=== PATIENT | female | born 1990 | race African-American/Black ===

== ENCOUNTER 2019-07-30 09:10 | Day surgery (SDC) | payer OTHER ==
[2019-07-30 10:00] VITALS: BMI 28.3
[2019-07-30] MEDS ORDERED: hydrALAZINE 20 MG/ML VIAL SLOW IVP PRN (10:12)
--- NOTE | 2019-07-30 10:20 | PDOC.LDHP ---
Labor and Delivery H&P HPI: Time of eval at bedside 1020 Here for CTX EGA 38 weeks 5 days 29 yo g1 with CTX since 0200, no LOF, mucous plu passed. Good FM, no VB. 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 Review of Systems: complete ROS checked and negative except for incidential HX of low "Blood count". Current gestational age (weeks): 38 (5 days) Due date: 08/08/19 Dating criteria: last menstrual period Grav: 1 Current complications: none Abnormal US findings: No Current medications: none (stopped dex recently...3 days ago) Previous surgical history: other (wisdom teeth) Allergies/Adverse Reactions: Allergies Allergy/AdvReac Type Severity Reaction Status Date / Time sulfamethoxazole Allergy Verified 07/30/19 09:53 [From Bactrim] trimethoprim [From Bactrim] Allergy Verified 07/30/19 09:53 - Physical Exam Vital signs reviewed and normal: yes (128/79) General: NAD Heart: RRR Lungs: CTAB Abdomen: gravid Extremeties: no edema FHT: category 1 - Vaginal Exam cm dilated: 2 Effacement: 75% Station: -1 - Assessment Latent phase of labor early term...GBS neg - Plan Plan: observation in L&D (recheck in 2 hours; check CBC if admitted for PLT check)
== END 2019-07-30 12:15 | disposition home or self-care (01) ==
LOC: L&D/OP 09:10
PROVIDERS: ATTEND Student in an Organized Health Care Education/Training Program
DX: Z34.03 Encounter for supervision of normal first pregnancy, third trimester (principal); Z3A.38 38 weeks gestation of pregnancy; Z88.2 Allergy status to sulfonamides

== ENCOUNTER 2019-07-31 10:16 | Inpatient (IN) | payer OTHER ==
[2019-07-31] MEDS ORDERED: HYDROcodone/Acetaminophen 5/325 mg Tablet PO PRN (10:28)
[2019-07-31] MEDS ORDERED: Butorphanol Tartrate 1 MG/ML VIAL SLOW IVP PRN (10:28)
[2019-07-31] MEDS ORDERED: Ondansetron PF 4 MG/2 ML Vial IVP PRN ×2 (10:28→12:55)
[2019-07-31] MEDS ORDERED: Acetaminophen 500 MG TAB PO PRN (10:28)
[2019-07-31] MEDS ORDERED: Promethazine HCl 25 MG/ML VIAL IM PRN (10:28)
[2019-07-31] MEDS ORDERED: Lidocaine 1% (PF) 30 ML VIAL SC PRN (10:28)
[2019-07-31] MEDS ORDERED: Carboprost 250 MCG/ML AMP IM PRN (10:28)
[2019-07-31] MEDS ORDERED: Ibuprofen 800 MG TAB PO PRN (10:28)
[2019-07-31] MEDS ORDERED: Misoprostol 200 MCG TAB PR PRN (10:28)
[2019-07-31] MEDS ORDERED: NS / Oxytocin 40 units/1000ml 1,000 ML IV PRN (10:28)
[2019-07-31] MEDS ORDERED: Methylergonovine 0.2 MG/ML VIAL IM PRN (10:28)
[2019-07-31] MEDS ORDERED: Diphenoxylate HCl/Atropine Tablet PO PRN (10:28)
[2019-07-31] MEDS ORDERED: NS w/ Oxytocin 10 units 500 ML IV SCH (10:30)
[2019-07-31 11:43] LABS: Hemoglobin 11.3 g/dL (12.0-16.0); Mean Corpuscular HGB CONC 35.7 g/dL (32.0-36.0); Mean Corpuscular Hemoglobin 31.1 pg (27.0-31.0); Mean Corpuscular Volume 87.1 fL (78.0-98.0); Mean Platelet Volume 15.1 fL (7.4-10.4); Platelet Count 64 thou/uL (130-400); RBC Distribution Width 16.2 % (11.5-14.5); Red Blood Cell (RBC) Count 3.63 mill/uL (4.20-5.40); White Blood Cell (WBC) Count 9.5 thou/uL (4.8-10.8)
[2019-07-31 12:01] LABS: ALT (SGPT) 71 U/L (8-55); AST (SGOT) 33 U/L (5-34); Albumin 3.4 g/dL (3.5-5.0); Alkaline Phosphatase 201 U/L (40-150); Anion Gap 11 mmol/L (10-20); BUN (Urea Nitrogen) 7 mg/dL (7.0-18.7); Bilirubin, Total 0.9 mg/dL (0.2-1.2); Calc. Creatinine Clearance 0 mL/min (70-130); Calcium 8.4 mg/dL (7.8-10.44); Carbon Dioxide 22 mmol/L (22-29); Chloride 106 mmol/L (98-107); Estimated GFR-MDRD Greater than 90; Globulin 2.3 g/dL (2.4-3.5); Glucose 97 mg/dL (70-105); Potassium 3.6 mmol/L (3.5-5.1); Protein, Total 5.7 g/dL (6.0-8.3); Sodium 135 mmol/L (136-145)
[2019-07-31 12:08] LABS: Band 2 % (5-11); Lymphocytes 9 % (21-51); MDiff Complete? YES; Monocytes 3 % (0-10); Neutrophil 86 % (42-75); Platelet Morphology Comment Appears Decreased; Polychromasia MODERATE = 3-4 cells (100X) (0-2/hpf)
[2019-07-31 12:17] LABS: HBSAg Index 0.15 S/CO (0-0.99); Hep B Surf Ag Non-Reactive S/CO (NonReactive)
[2019-07-31 12:20] LABS: Syphilis Antibody Nonreactive (Nonreactive); Syphilis Antibody Index 0.03 S/CO (<1.00 Non-Reactive)
[2019-07-31 12:42] VITALS: BMI 28.3
[2019-07-31] MEDS ORDERED: Naloxone HCl 0.4 mg/ml Vial IV PRN (12:55)
[2019-07-31] MEDS ORDERED: fentaNYL Citrate/PF 2,000 MCG in Sodium Chloride 0.9% 60 ML IV PRN (12:55)
[2019-07-31] MEDS ORDERED: Communication Order-Pharmacy FS PRN (13:00)
--- NOTE | 2019-07-31 13:52 | PDOC.LDHP ---
Labor and Delivery H&P Chief complaint: contractions HPI: 29yo at 38w5d by LMP here with painful contractions since yesterday q 5- 8min. 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 Current medications: pre-jonas vitamins, iron Previous surgical history: none Allergies/Adverse Reactions: Allergies Allergy/AdvReac Type Severity Reaction Status Date / Time sulfamethoxazole Allergy Verified 07/30/19 09:53 [From Bactrim] trimethoprim [From Bactrim] Allergy Verified 07/30/19 09:53 Social history: none - Physical Exam Vital signs reviewed and normal: yes General: NAD, breathing through contractions Heart: RRR Lungs: CTAB Abdomen: gravid Extremeties: no edema FHT: category 1 [place] contractions every: 5-10min - Vaginal Exam cm dilated: 5 Effacement: 100% Station: 0 (arom mod mec) - OB Labs RH: positive Antibody Screen: negative HIV: negative RPR: negative HEPSAg: negative 1 hour GCT: negative GBS: negative Urine drug screen: negative Rubella: immune - Assessment L&D Assessment: term patient in labor - Plan Plan: admit to L&D, labor augmentation if indicated, informed consent obtained, anesthesia consult for pain management -: BP mildly elevated, ALT 71, Creat nl, Plt 64, will get PCR and r/o PIH. No sx currently. Type and cross prbc and platelets.
[2019-07-31 16:30] LABS: Creatinine, Urine 59.24 mg/dL (47-110)
[2019-07-31] MEDS ORDERED: Magnesium Sulfate 20 gm/500 ml 20 GM/500 ML BAG ONE (17:52)
[2019-07-31] MEDS: Lactated Ringer's 1,000 ML IV SCH (18:11)
[2019-07-31] MEDS ORDERED: Calcium Gluc 4.6 MEQ/10 ML (100 MG/ML) SLOW IVP PRN (18:31)
[2019-07-31] MEDS ORDERED: Magnesium Sulfate 20 GM/WATER 500 ML BAG IVPB SCH (18:45)
[2019-07-31] MEDS ORDERED: Magnesium Sulfate 20 gm/500 ml 20 GM/500 ML BAG IVPB SCH (18:45)
[2019-07-31] MEDS ORDERED: Misoprostol 200 MCG TAB ONE (19:32)
[2019-07-31] MEDS ORDERED: Methylergonovine 0.2 MG/ML VIAL ONE (19:33)
[2019-07-31] MEDS ORDERED: NS / Oxytocin 40 units/1000ml 1,000 ML ONE (19:33)
[2019-07-31] MEDS ORDERED: Carboprost 250 MCG/ML AMP ONE (19:33)
[2019-07-31] MEDS: hydrALAZINE 20 MG/ML VIAL SLOW IVP PRN (23:03)
[2019-08-01 08:01] LABS: ALT (SGPT) 53 U/L (8-55); AST (SGOT) 31 U/L (5-34); Albumin 3.5 g/dL (3.5-5.0); Alkaline Phosphatase 212 U/L (40-150); Anion Gap 16 mmol/L (10-20); BUN (Urea Nitrogen) 6 mg/dL (7.0-18.7); Bilirubin, Total 1.6 mg/dL (0.2-1.2); Calc. Creatinine Clearance 115 mL/min (70-130); Calcium 7.7 mg/dL (7.8-10.44); Carbon Dioxide 18 mmol/L (22-29); Chloride 102 mmol/L (98-107); Estimated GFR-MDRD Greater than 90; Globulin 2.5 g/dL (2.4-3.5); Glucose 116 mg/dL (70-105); Potassium 3.6 mmol/L (3.5-5.1); Sodium 132 mmol/L (136-145)
[2019-08-01 08:14] LABS: Anisocytosis SLIGHT = 6-15 cells (100X) (0-5/hpf); Band 10 % (5-11); Hemoglobin 11.5 g/dL (12.0-16.0); Large Platelets SLIGHT; Lymphocytes 2 % (21-51); MDiff Complete? YES; Mean Corpuscular HGB CONC 35.1 g/dL (32.0-36.0); Mean Corpuscular Hemoglobin 30.8 pg (27.0-31.0); Mean Corpuscular Volume 87.9 fL (78.0-98.0); Mean Platelet Volume 12.4 fL (7.4-10.4); Monocytes 2 % (0-10); Neutrophil 86 % (42-75); Platelet Count 45 thou/uL (130-400); Platelet Morphology Comment Appears Decreased; RBC Distribution Width 16.2 % (11.5-14.5); Red Blood Cell (RBC) Count 3.74 mill/uL (4.20-5.40); White Blood Cell (WBC) Count 18.5 thou/uL (4.8-10.8)
--- NOTE | 2019-08-01 09:08 | PDOC.OPDEL ---
OB Operative/Delivery Note Delivery Dr/Surgeon: Nay Assist: n/a Pre-Delivery Diagnosis: medically indicated induction (severe PEC) Procedure/Post Delivery Dx: spontaneous vaginal delivery Weeks gestation: 38 Anesthesia: local - Findings A Sex: male - 1 min: 8 - 5 min: 9 - Additional Findings/Plan Placenta delivered: spontaneous Repaired Obstetrical Laceration: 1st degree Estimated blood loss: 500cc Post delivery plan: recovery in LICU
[2019-08-01] MEDS ORDERED: hydrALAZINE 20 MG/ML VIAL ONE (09:49)
[2019-08-01] MEDS: hydrALAZINE 20 MG/ML VIAL SLOW IVP PRN (10:00)
[2019-08-01] MEDS ORDERED: NIFEdipine 10 MG CAP PO SCH (11:00)
[2019-08-01] MEDS ORDERED: Labetalol HCl 100 MG/20 ML VIAL SLOW IVP SCH (11:00)
[2019-08-01] MEDS ORDERED: MAGNESIUM SULFATE IVPB SCH ×2 (13:15→13:30)
[2019-08-01] MEDS ORDERED: ADMIXTURE FEE IVPB SCH ×2 (13:15→13:30)
[2019-08-01] MEDS ORDERED: STERILE WATER IVPB SCH ×2 (13:15→13:30)
[2019-08-01] MEDS ORDERED: Zolpidem Tartrate 5 MG TAB PO PRN (13:42)
[2019-08-01] MEDS ORDERED: Preparation H Ointment 28 GM TUBE PR PRN (13:42)
[2019-08-01] MEDS ORDERED: Benzocaine-Menthol 82.5 ML CAN TOP PRN (13:42)
[2019-08-01] MEDS ORDERED: Ondansetron PF 4 MG/2 ML Vial IVP PRN (13:42)
[2019-08-01] MEDS ORDERED: Bisacodyl 10 MG SUPP PR PRN (13:42)
[2019-08-01] MEDS ORDERED: Milk Of Magnesia 30 ML UDCUP PO PRN (13:42)
[2019-08-01] MEDS ORDERED: hydrALAZINE 20 MG/ML VIAL SLOW IVP PRN (13:42)
[2019-08-01] MEDS ORDERED: diphenhydrAMINE 25 MG CAP PO PRN (13:42)
[2019-08-01] MEDS ORDERED: HYDROcodone/Acetaminophen 5/325 mg Tablet PO PRN ×2 (13:42)
[2019-08-01] MEDS ORDERED: Lanolin Ointment 7 GM TUBE TOP PRN (13:42)
[2019-08-01] MEDS ORDERED: NS / Oxytocin 40 units/1000ml 1,000 ML IV SCH (13:45)
[2019-08-02] MEDS: Lactated Ringer's 1,000 ML IV SCH ×4 (02:54→12:09)
[2019-08-02 05:05] LABS: #Eosinphils 0.1 thou/uL (0.0-0.7); #Lymphocytes 1.6 thou/uL (1.20-3.40); #Monocytes 0.9 thou/uL (0.11-0.59); #Neutrophils 10.8 thou/uL (1.40-6.50); %Basophils 0.3 % (0.0-1.0); %Eosinophils 0.4 % (0.0-10.0); %Lymphocytes 11.9 % (21.0-51.0); %Monocytes 6.9 % (0.0-10.0); %Neutrophils 80.5 % (42.0-75.0); Hemoglobin 8.9 g/dL (12.0-16.0); Mean Corpuscular HGB CONC 34.7 g/dL (32.0-36.0); Mean Corpuscular Hemoglobin 31.1 pg (27.0-31.0); Mean Corpuscular Volume 89.7 fL (78.0-98.0); Mean Platelet Volume 13.7 fL (7.4-10.4); Platelet Count 79 thou/uL (130-400); RBC Distribution Width 16.2 % (11.5-14.5); Red Blood Cell (RBC) Count 2.85 mill/uL (4.20-5.40); White Blood Cell (WBC) Count 13.4 thou/uL (4.8-10.8)
[2019-08-02 05:26] LABS: ALT (SGPT) 26 U/L (8-55); AST (SGOT) 16 U/L (5-34); Albumin 2.5 g/dL (3.5-5.0); Alkaline Phosphatase 126 U/L (40-150); Bilirubin, Direct 0.3 mg/dL (0.1-0.3); Bilirubin, Total 0.6 mg/dL (0.2-1.2); Protein, Total 4.6 g/dL (6.0-8.3)
[2019-08-02] MEDS: Ibuprofen 800 MG TAB PO SCH ×5 (06:56→19:35)
[2019-08-02] MEDS: Docusate Calcium (SURFAK) 240 MG CAP PO SCH ×3 (06:57→19:35)
--- NOTE | 2019-08-02 07:25 | PDOC.PP ---
Post Progress Note Post Day #: 1 Subjective: Doing much better this morning. No more perioral numbness. PO intake tolerated: yes Weight Weight 155 lb - Physical Examination General: NAD Respiratory: non-labored breathing Abdominal: lochia (normal), no distention, appropriately TTP Fundus firm & at: below umbilicus Neurological: no gross focal deficits Psychiatric: A&Ox3, normal affect Result Diagrams: 08/02/19 04:39 08/01/19 07:10 Additional Labs: Post Labs Blood Type B POSITIVE 07/31/19 11:07 Hep Bs Antigen Non-Reactive S/CO (NonReactive) 07/31/19 11:07 (1) (spontaneous vaginal delivery) Code(s): O80 - ENCOUNTER FOR FULL-TERM UNCOMPLICATED DELIVERY Status: Acute (2) Thrombocytopenia Code(s): D69.6 - THROMBOCYTOPENIA, UNSPECIFIED Status: Chronic - Assessment/Plan D/c Mag today. BPs wnl since noon yesterday. Platelet level improved to 79, 000. Continue to monitor.
[2019-08-02] MEDS: Ferrous Sulfate 325 MG TAB PO SCH ×3 (08:02→19:03)
[2019-08-02] MEDS: Prenatal Vitamin 1 TAB PO SCH (09:02)
[2019-08-02] MEDS ORDERED: Adacel (T-DAP) 0.5 ML SYRINGE IM ONE (13:42)
[2019-08-03] MEDS ORDERED: Sodium Chloride 0.9% 10 ML ONE (00:21)
--- NOTE | 2019-08-03 05:45 | PDOC.PP ---
Post Progress Note Post Day #: PPD2 Subjective: , no complaints. PO intake tolerated: yes Flatus: yes Ambulation: yes Vital Signs (12 hours) Temp Pulse Resp BP Pulse Ox 08/03/19 00:20 98.3 F 88 20 114/63 08/02/19 22:40 98.3 F 94 20 123/72 98 Weight Weight 70.307 kg - Physical Examination General: NAD Respiratory: non-labored breathing Abdominal: no distention Neurological: no gross focal deficits Psychiatric: normal affect Result Diagrams: 08/02/19 04:39 08/01/19 07:10 Additional Labs: Post Labs Blood Type B POSITIVE 07/31/19 11:07 Hep Bs Antigen Non-Reactive S/CO (NonReactive) 07/31/19 11:07 - Assessment/Plan Doing well since Mg stopped yesterday AM. Suspect resolving atypical HELLP. CBC this AM pending. Possible Dc later today.
[2019-08-03 05:49] LABS: #Basophils 0.1 thou/uL (0.0-0.2); #Eosinphils 0.1 thou/uL (0.0-0.7); #Lymphocytes 1.9 thou/uL (1.20-3.40); #Monocytes 0.8 thou/uL (0.11-0.59); #Neutrophils 7.4 thou/uL (1.40-6.50); %Basophils 0.5 % (0.0-1.0); %Eosinophils 0.6 % (0.0-10.0); %Lymphocytes 18.8 % (21.0-51.0); %Monocytes 7.7 % (0.0-10.0); %Neutrophils 72.4 % (42.0-75.0); Hemoglobin 8.3 g/dL (12.0-16.0); Mean Corpuscular Hemoglobin 31.4 pg (27.0-31.0); Mean Corpuscular Volume 89.8 fL (78.0-98.0); Mean Platelet Volume 13.2 fL (7.4-10.4); Platelet Count 77 thou/uL (130-400); RBC Distribution Width 15.9 % (11.5-14.5); Red Blood Cell (RBC) Count 2.65 mill/uL (4.20-5.40); White Blood Cell (WBC) Count 10.3 thou/uL (4.8-10.8)
[2019-08-03] MEDS: Ibuprofen 800 MG TAB PO SCH ×2 (06:23→15:47)
[2019-08-03 08:28] VITALS: BP 121/67; TEMP 98.2
[2019-08-03] MEDS: Docusate Calcium (SURFAK) 240 MG CAP PO SCH (09:33)
[2019-08-03] MEDS: Prenatal Vitamin 1 TAB PO SCH (09:33)
[2019-08-03] MEDS: Ferrous Sulfate 325 MG TAB PO SCH (09:34)
--- NOTE | 2019-08-03 17:23 | PDOC.EVN ---
Event Note - Event Note Event Note: BPs ok Labs reviewed patient would like to be DC to home per RN OK for DC to home. Patient seen by Dr Sosa this AM
== END 2019-08-03 18:15 | disposition home or self-care (01) | DRG 806 ==
LOC: L&D/OP 10:16 → L&D 10:21 → 3SW 08-02 11:59
PROVIDERS: ADMIT Student in an Organized Health Care Education/Training Program; ATTEND Student in an Organized Health Care Education/Training Program
PROC: 10907ZC Drainage of Amniotic Fluid, Therapeutic from Products of Conception, Via Natural or Artificial Opening (ICD-10-PCS; principal; 2019-08-01)
PROC: 10E0XZZ Delivery of Products of Conception, External Approach (ICD-10-PCS; 2019-08-01)
PROC: 3E033VJ Introduction of Other Hormone into Peripheral Vein, Percutaneous Approach (ICD-10-PCS; 2019-08-01)
DX: O14.14 Severe pre-eclampsia complicating childbirth (principal); O99.12 Other diseases of the blood and blood-forming organs and certain disorders involving the immune mechanism complicating childbirth; Z37.0 Single live birth; O13.4 Gestational [pregnancy-induced] hypertension without significant proteinuria, complicating childbirth; D69.6 Thrombocytopenia, unspecified; O70.0 First degree perineal laceration during delivery; Z3A.38 38 weeks gestation of pregnancy
CPT/HCPCS: 36415; 36430; 51702; 80053; 80076; 82570; 83735; 84156; 85007; 85025; 85027; 86780; 86850; 86900; 86901; 87340; 99283; A4217; J0360; J2001; J2210; J2405; J2590; J3010; J3475; J3490; P9035

== ENCOUNTER 2021-02-18 15:49 | Emergency (ER) | payer OTHER ==
[~2021-02-18 15:49] MED LIST: Iopamidol-370 76% 500 ML 1 ML ONE
[2021-02-18 16:18] LABS: #Basophils 0.1 thou/uL (0.0-0.2); #Eosinphils 0.1 thou/uL (0.0-0.7); #Lymphocytes 1.4 thou/uL (1.20-3.40); #Monocytes 0.3 thou/uL (0.11-0.59); #Neutrophils 3.4 thou/uL (1.40-6.50); %Basophils 1.2 % (0.0-1.0); %Eosinophils 1.6 % (0.0-10.0); %Lymphocytes 26.8 % (21.0-51.0); %Monocytes 5.9 % (0.0-10.0); %Neutrophils 64.5 % (42.0-75.0); Hemoglobin 13.6 g/dL (12.0-16.0); Mean Corpuscular HGB CONC 35.1 g/dL (32.0-36.0); Mean Corpuscular Hemoglobin 30.5 pg (27.0-31.0); Mean Corpuscular Volume 86.9 fL (78.0-98.0); RBC Distribution Width 11.8 % (11.5-14.5); Red Blood Cell (RBC) Count 4.47 mill/uL (4.20-5.40); White Blood Cell (WBC) Count 5.3 thou/uL (4.8-10.8)
[2021-02-18 16:33] LABS: Large Platelets MODERATE; MDiff Complete? YES; Mean Platelet Volume 12.4 fL (7.4-10.4); Platelet Count 126 thou/uL (130-400); Platelet Morphology Comment Appears Decreased; Polychromasia SLIGHT = 2-3 cells (100X) (0-2/hpf)
[2021-02-18 16:38] LABS: ALT (SGPT) 35 U/L (8-55); AST (SGOT) 23 U/L (5-34); Albumin 4.3 g/dL (3.5-5.0); Alkaline Phosphatase 51 U/L (40-110); Anion Gap 14 mmol/L (10-20); BUN (Urea Nitrogen) 11 mg/dL (7.0-18.7); Bilirubin, Total 0.4 mg/dL (0.2-1.2); Calc. Creatinine Clearance 0 mL/min (70-130); Calcium 8.9 mg/dL (7.8-10.44); Carbon Dioxide 21 mmol/L (22-29); Chloride 104 mmol/L (98-107); Globulin 3.1 g/dL (2.4-3.5); Glucose 111 mg/dL (70-105); Potassium 4.2 mmol/L (3.5-5.1); Protein, Total 7.4 g/dL (6.0-8.3); Sodium 135 mmol/L (136-145)
[2021-02-18 19:11] LABS: BHCG - Serum Negative (NEGATIVE); Pregs Control Background? CLEAR/WHITE (CLR/WHITE); Pregs Control Bar Appear? YES (CONTROL BAR)
== END 2021-02-18 21:10 | disposition home or self-care (01) ==
LOC: ERS 15:49
DX: R00.2 Palpitations (principal); R00.0 Tachycardia, unspecified; D64.9 Anemia, unspecified; Z79.899 Other long term (current) drug therapy
CPT/HCPCS: 36415; 71045; 71275; 80053; 84484; 84703; 85025; 85379; 93005; Q9967

== ENCOUNTER 2021-06-24 13:31 | Emergency (ER) | payer OTHER ==
[2021-06-24 14:47] LABS: HIV (1/2) Antibody/Antigen Non-Reactive (NonReactive); Hep C IgG Ab Non-Reactive (NonReactive); Hep C Index 0.08 S/CO (0-0.79)
[2021-06-24 15:29] LABS: HBSAB Concentration Greater than 25000.00 mIU/mL; Hep B Surf AB Reactive (NonReactive)
== END 2021-06-24 15:00 | disposition home or self-care (01) ==
LOC: ERS 13:31
DX: Z77.21 Contact with and (suspected) exposure to potentially hazardous body fluids (principal); D64.9 Anemia, unspecified
CPT/HCPCS: 36415; 86706; 86803; 87389; 99283